=== PATIENT | female | born 1985 | race Caucasian/White ===

== ENCOUNTER 2017-10-24 20:19 | Emergency (ER) | payer SELFPAY, MEDICAID | END 2017-10-25 01:12 | disposition left against medical advice (07) | LOC: FTE 20:19 | DX: Z53.21 Procedure and treatment not carried out due to patient leaving prior to being seen by health care provider (principal) ==

== ENCOUNTER 2018-06-06 17:50 | Emergency (ER) | payer MEDICAID ==
[2018-06-06] MEDS: DEXAMETHASONE 4 MG TAB PO (20:46)
[2018-06-06] MEDS: ONDANSETRON (ODT) 4 MG TAB ODT (20:46)
== END 2018-06-06 20:53 | disposition home or self-care (01) ==
LOC: FTE 17:50
DX: R05 Cough (principal)
CPT/HCPCS: 99283; Z7502

== ENCOUNTER 2019-01-20 08:10 | Emergency (ER) | payer MEDICAID | END 2019-01-20 08:56 | disposition home or self-care (01) | LOC: FTE 08:56 | DX: R05 Cough (principal) | CPT/HCPCS: 99283; Z7502 ==